=== PATIENT | male | born 1970 | race Caucasian/White ===

== ENCOUNTER → 2017-01-21 | Outpatient (CLI) | payer BC ==
[~2017-01-21] VITALS: Ht 180.3 cm; Wt 106.5 kg
[~2017-01-21] MED LIST: ATOR-24 PO; ATV/1 PO; FEXO1TAB46 PO; HYDRTAB8 PO; IBUP-103 PO
[2017-01-21 15:04] VITALS: BP 137/89; PULSE 106; Ht 180.3 cm; Wt 106.5 kg
== END | disposition home or self-care (01) ==
LOC: C.NEUR 14:50
PROVIDERS: ATTEND Physician Assistant
DX: G47.33 Obstructive sleep apnea (adult) (pediatric) (principal)

== ENCOUNTER → 2017-05-06 | Outpatient (CLI) | payer BC ==
[2017-05-06 17:40] LABS: URINE APPEARANCE CLEAR (CLEAR); URINE BILIRUBIN NEG (NEG); URINE COLOR YELLOW; URINE NITRITE NEG (NEG); URINE PH 6.5 (4.5-7.5); UROBILINOGEN NEG (NEG); ZZUR CULT IF INDIC CLEAN CATCH NO
[2017-05-06 17:42] LABS: MEAN CORPUSCULAR HGB CONC 34.8 g/dl (32-36); MEAN PLATELET VOLUME 9.8 fL (7.4-10.4); PLATELET COUNT 210 K/uL (130-400)
[2017-05-06 17:50] LABS: BLOOD UREA NITROGEN 11 mg/dl (7-18); BUN/CREATININE RATIO 10.7 (10-20); CALCIUM 8.8 mg/dl (8.5-10.1); CARBON DIOXIDE 28 mmol/L (21-32); CHLORIDE 106 mmol/L (98-107); CHOLESTEROL 151 mg/dl (0-200); CREATININE 0.99 mg/dl (0.60-1.40); GLUCOSE 88 mg/dl (70-99); POTASSIUM 3.9 mmol/L (3.5-5.1); SODIUM 139 mmol/L (136-145)
[2017-05-06 17:56] LABS: MANUAL MICROSCOPIC REQUIRED? NO; REVIEW REQ? NO
[2017-05-06 18:01] LABS: ALB/GLOB RATIO 1.1 (0.9-2); ALKALINE PHOSPHATASE 127 U/L (45-117); ALT/SGPT 36 U/L (12-78); AST/SGOT 19 U/L (15-37); CHOLESTEROL/HDL RATIO 3.4; HDL CHOLESTEROL 44 mg/dl; LDL CHOLESTEROL CALCULATED 64 mg/dl; TRIGLYCERIDES 217 mg/dl (0-150); VERY LOW DENSITY LIPOPROT CALC 43 mg/dl
[2017-05-06 18:50] LABS: HEMATOCRIT 43.1 % (42-52); MEAN CELL VOLUME 92.3 fL (80-100); MEAN CORPUSCULAR HEMOGLOBIN 32.1 pg (25-34); RED BLOOD COUNT 4.67 M/uL (4.7-6.1); WHITE BLOOD COUNT 6.86 K/uL (4.8-10.8)
[2017-05-06 18:51] LABS: BASO % 0.3 %; BASO ABS # 0.02 K/uL (0-0.2); COMPLETE YES; EOS % 1.7 %; IG% 0.6 %; LYMPH % 35.7 %; LYMPH ABS # 2.45 K/uL (1.2-3.4); MONO % 7.3 %; NEUT % 54.4 %
== END | disposition home or self-care (01) ==
LOC: C.LABBFT 11:46
PROVIDERS: ATTEND Internal Medicine
DX: R53.83 Other fatigue (principal); E78.5 Hyperlipidemia, unspecified

== ENCOUNTER 2018-01-16 11:14 | Inpatient (IN) | payer BC ==
[~2018-01-16] VITALS: Ht 180.3 cm; Wt 109.2 kg
[2018-01-16] MEDS ORDERED: NAPR220T40 PO (11:37)
[2018-01-16] MEDS ORDERED: SODIUM CHLORIDE 0.9% 1000ML 1,000 ML IV STA ×2 (12:05→13:39)
[2018-01-16 12:18] LABS: BASO % 0.1 %; BASO ABS # 0.02 K/uL (0-0.2); EOS % 0.1 %; EOS ABS # 0.01 K/uL (0-0.5); HEMATOCRIT 45.5 % (42-52); IG# 0.06 K/uL (0.00-0.02); LYMPH % 6.6 %; LYMPH ABS # 1.24 K/uL (1.2-3.4); MEAN CORPUSCULAR HGB CONC 35.2 g/dl (32-36); MEAN PLATELET VOLUME 9.9 fL (7.4-10.4); MONO % 8.7 %; MONO ABS # 1.64 K/uL (0.11-0.59); NEUT % 84.2 %; NEUT ABS # 15.94 K/uL (1.4-6.5); PLATELET COUNT 177 K/uL (130-400); RED CELL DISTRIBUTION WIDTH CV 13.7 % (11.5-14.5); RED CELL DISTRIBUTION WIDTH SD 44.8 fL (36.4-46.3); WHITE BLOOD COUNT 18.91 K/uL (4.8-10.8)
[2018-01-16 12:29] LABS: ALBUMIN 4.7 gm/dl (3.4-5.0); CALCIUM 9.3 mg/dl (8.5-10.1); CREATININE 1.29 mg/dl (0.60-1.40); POTASSIUM 3.8 mmol/L (3.5-5.1)
--- NOTE | 2018-01-16 12:30 | DIAGNOSTIC IMAGING REPORT ---
CHEST ONE VIEW PORTABLE CLINICAL HISTORY: Cough, chills, tachycardia. COMPARISON STUDY: Chest radiograph February 23, 2013. FINDINGS: Patient is mildly rotated. Lung volumes are normal. There is no pneumothorax or pleural effusion. No consolidation is identified. Cardiac size is normal. Mild interstitial prominence is unchanged. There is no evidence for overt pulmonary edema. IMPRESSION: No acute cardiopulmonary findings. Electronically signed by: Eduardo Hernandez M.D. 01/16/2018 12:28 PM Dictated Date/Time: 01/16/2018 12:27 PM
[2018-01-16 12:31] LABS: PTT PATIENT 26.9 SECONDS (21.0-31.0)
[2018-01-16] MEDS ORDERED: CEFTRIAXONE SOD INJ 1 GM ADDVIAL IV STA (12:44)
--- NOTE | 2018-01-16 12:44 | EMERGENCY ROOM VISIT NOTE ---
History First contact with patient: 11:52 Chief Complaint: URINARY SYMPTOMS Stated Complaint: URINARY FREQUENCY, BURNING LOW BACK PAIN, COUGH,FE Nursing Triage Summary: Patient complains of burning with urination, frequency and low back pain since yesterday at 1700 History of Present Illness The patient is a 47 year old male who presents to the Emergency Room with complaints of "urinary frequency, burning, low back pain, cough, fever". The patient has a cough 6 months. However, he presents today referred by the family doctor for urinary frequency, fever 102F, back pain. He also notes fevers and chills. He notes no history of UTI or kidney stone. He states that he has urinary frequency, burning and urgency. He has decreased p.o. fluids. He denies seeing any blood. He notes bowel movements have been okay. He notes no true abdominal pain other than some discomfort overlying the bladder region. Review of Systems A complete 10-point Review of Systems was discussed with the patient, with pertinent positives and negatives listed in the History of Present Illness. All remaining Review of Systems questions can be considered negative unless otherwise specified. Past Medical/Surgical History Medical Problems: (1) Bronchitis (2) Carpal tunnel syndrome (3) Colectomy (4) Dysuria (5) Flank pain (6) Pneumonia Social History Smoking Status: Never Smoker Alcohol Use: occasionally Marital Status: Housing Status: lives with family Occupation Status: employed Current/Historical Medications Scheduled PRN Naproxen Sodium (Aleve), 220 MG PO UD PRN for Headache Physical Exam Vital Signs Date Time Temp Pulse Resp B/P (MAP) Pulse Ox O2 Delivery O2 Flow Rate FiO2 01/16/18 14:29 110 20 177/96 98 Room Air 01/16/18 13:34 118 22 156/93 98 Room Air 01/16/18 11:22 37.6 130 20 136/84 98 Room Air Physical Exam VITAL SIGNS - Vital signs and nursing notes were reviewed. Borderline febrile and tachycardic. GENERAL -47-year-old male appearing his stated age who is in no acute distress. He is nontoxic in appearance. Communicates well with provider and answers questions appropriately. SKIN - Without rashes. No meningeal or petechial rash. HEAD - NC/AT. EYES - PERRL with EOMI bilaterally. Sclera anicteric. EARS - No deformities of external structures noted on gross examination bilaterally. NOSE - Midline and without cyanosis. No epistaxis or purulent drainage noted. MOUTH/OROPHARYNX - Without perioral cyanosis. NECK - Neck with FROM. Supple to palpation. No nuchal rigidity. LUNGS - Chest wall symmetric without accessory muscle use, intercostals retractions, or central cyanosis. Normal vesicular breath sounds CTA B/L. No wheezes, rales, or rhonchi appreciated. CARDIAC - RRR with S1/S2. No murmur, rubs, or gallops appreciated. ABDOMEN - Abdominal contour normal without pulsations or visible masses. BS normoactive all four quadrants. Minimal lower back tenderness. No identified abdominal tenderness. No palpable masses, hepatosplenomegaly, or ascites noted. EXTREMITIES - No clubbing or peripheral cyanosis. No pretibial edema present. +5 /5 strength noted in UE/LE bilaterally. NEUROLOGIC - Cranial nerves II through XII grossly intact. Sensory intact to light touch throughout. Medical Decision & Procedures ER Provider Diagnostic Interpretation: CHEST ONE VIEW PORTABLE CLINICAL HISTORY: Cough, chills, tachycardia. COMPARISON STUDY: Chest radiograph February 23, 2013. FINDINGS: Patient is mildly rotated. Lung volumes are normal. There is no pneumothorax or pleural effusion. No consolidation is identified. Cardiac size is normal. Mild interstitial prominence is unchanged. There is no evidence for overt pulmonary edema. IMPRESSION: No acute cardiopulmonary findings. Electronically signed by: Eduardo Hernandez M.D. 01/16/2018 12:28 PM Dictated Date/Time: 01/16/2018 12:[address] OF THE ABDOMEN AND PELVIS WITH CONTRAST CLINICAL HISTORY: Flank pain, dysuria. COMPARISON STUDY: None. TECHNIQUE: Following IV administration of 110 mL of Optiray-320, axial images of the abdomen and pelvis were obtained from the lung bases to the proximal femurs. Images were reviewed in the axial, sagittal, and coronal planes. IV contrast was administered without complication. A dose lowering technique was utilized adhering to the principles of ALARA. CT DOSE: 1068.36 mGycm FINDINGS: Lung bases are clear. There is probable fatty infiltration of the liver. The spleen, adrenal glands and pancreas are unremarkable. There is no biliary or pancreatic ductal dilatation. There is mild left collecting system dilatation. Both nephrograms are symmetric. There is no evidence for pyelonephritis. There is slight infiltration posterior to the bladder with possible mild bladder wall thickening. There may be slight prominent enhancement of the santiago of both ureters although this could be within normal limits. There is no evidence for a bowel obstruction. Patient is status post right colon resection. Fat-containing right inguinal hernia is noted. Prostate is mildly enlarged. IMPRESSION: 1. Minimal infiltration posterior to the bladder with mild bladder wall thickening. This could be correlated with urinalysis to exclude cystitis. No CT evidence for pyelonephritis. 2. Mild left collecting system dilatation with normal caliber left ureter. While nonspecific, this may reflect a mild UPJ type obstruction. Symmetric nephrograms. 3. Status post right colon resection. No bowel obstruction. No lymphadenopathy. Electronically signed by: Eduardo Hernandez M.D. 01/16/2018 1:50 PM Dictated Date/Time: 01/16/2018 1:38 PM Laboratory Results 01/16/18 11:55 Red Blood Count 5.00, Mean Corpuscular Volume 91.0, Mean Corpuscular Hemoglobin 32.0, Mean Corpuscular Hemoglobin Concent 35.2, Mean Platelet Volume 9.9, Neutrophils (%) (Auto) 84.2, Lymphocytes (%) (Auto) 6.6, Monocytes (%) (Auto) 8.7, Eosinophils (%) (Auto) 0.1, Basophils (%) (Auto) 0.1, Neutrophils # (Auto) 15.94, Lymphocytes # (Auto) 1.24, Monocytes # (Auto) 1.64, Eosinophils # (Auto) 0.01, Basophils # (Auto) 0.02 01/16/18 11:55 Test 01/16/18 11:50 01/16/18 11:55 01/16/18 13:00 Urine Color DK YELLOW Urine Appearance CLOUDY (CLEAR) Urine pH 6.5 (4.5-7.5) Urine Specific [place] 1.026 (1.000-1.030) Urine Protein 1+ (NEG) Urine Glucose (UA) NEG (NEG) Urine Ketones TRACE (NEG) Urine Occult Blood 1+ (NEG) Urine Nitrite POS (NEG) Urine Bilirubin NEG (NEG) Urine Urobilinogen NEG (NEG) Urine Leukocyte Esterase LARGE (NEG) Urine WBC (Auto) >30 /hpf (0-5) Urine RBC (Auto) 10-30 /hpf (0-4) Urine Hyaline Casts (Auto) 0 /lpf (0-5) Urine Epithelial Cells (Auto) 0-5 /lpf (0-5) Urine Bacteria (Auto) 1+ (NEG) White Blood Count 18.91 K/uL (4.8-10.8) Red Blood Count 5.00 M/uL (4.7-6.1) Hemoglobin 16.0 g/dL (14.0-18.0) Hematocrit 45.5 % (42-52) Mean Corpuscular Volume 91.0 fL (80-100) Mean Corpuscular Hemoglobin 32.0 pg (25-34) Mean Corpuscular Hemoglobin Concent 35.2 g/dl (32-36) Platelet Count 177 K/uL (130-400) Mean Platelet Volume 9.9 fL (7.4-10.4) Neutrophils (%) (Auto) 84.2 % Lymphocytes (%) (Auto) 6.6 % Monocytes (%) (Auto) 8.7 % Eosinophils (%) (Auto) 0.1 % Basophils (%) (Auto) 0.1 % Neutrophils # (Auto) 15.94 K/uL (1.4-6.5) Lymphocytes # (Auto) 1.24 K/uL (1.2-3.4) Monocytes # (Auto) 1.64 K/uL (0.11-0.59) Eosinophils # (Auto) 0.01 K/uL (0-0.5) Basophils # (Auto) 0.02 K/uL (0-0.2) RDW Standard Deviation 44.8 fL (36.4-46.3) RDW Coefficient of Variation 13.7 % (11.5-14.5) Immature Granulocyte % (Auto) 0.3 % Immature Granulocyte # (Auto) 0.06 K/uL (0.00-0.02) Prothrombin Time 10.4 SECONDS (9.0-12.0) Prothromb Time International Ratio 1.0 (0.9-1.1) Activated Partial Thromboplast Time 26.9 SECONDS (21.0-31.0) Partial Thromboplastin Ratio 1.0 Anion Gap 7.0 mmol/L (3-11) Est Creatinine Clear Calc Drug Dose 90.9 ml/min Estimated GFR () 77.1 Estimated GFR (Non- 66.5 BUN/Creatinine Ratio 12.2 (10-20) Calcium Level 9.3 mg/dl (8.5-10.1) Total Bilirubin 1.3 mg/dl (0.2-1) Aspartate Amino Transf (AST/SGOT) 19 U/L (15-37) Alanine Aminotransferase (ALT/SGPT) 39 U/L (12-78) Alkaline Phosphatase 135 U/L (45-117) Total Protein 9.0 gm/dl (6.4-8.2) Albumin 4.7 gm/dl (3.4-5.0) Globulin 4.3 gm/dl (2.5-4.0) Albumin/Globulin Ratio 1.1 (0.9-2) Lactic Acid Level 1.2 mmol/L (0.4-2.0) Medications Administered Medications (Trade) Dose Ordered Sig/Gillian Route Start Time Stop Time Status Last Admin Dose Admin Sodium Chloride 1,000 ml @ 999 mls/hr Q1H1M STAT IV 01/16/18 12:05 01/16/18 13:05 DC 01/16/18 12:30 999 MLS/HR Ceftriaxone Sodium (Rocephin Inj) 1 gm NOW STAT IV 01/16/18 12:44 01/16/18 12:46 DC 01/16/18 13:33 1 GM Sodium Chloride 1,000 ml @ 999 mls/hr Q1H1M STAT IV 01/16/18 13:39 01/16/18 14:39 DC 01/16/18 14:01 999 MLS/HR Medical Decision Patient was seen and evaluated as above in room B8. Review was performed of nursing notes and vital signs. After obtaining a thorough history and physical examination the above work up was performed. He presents to us referred by the family doctor of her concerns of questionable pyelonephritis. Clinically sure the same concern. He presents to us today tachycardic and borderline febrile. There is urinary frequency, dysuria, frequency. Urinalysis is concerning for UTI. CBC reveals leukocytosis without concerning anemia. No emergent metabolic abnormality. I will treat with fluids, and empirically begin Rocephin after blood cultures are ordered. CT was obtained with contrast of the abdomen and pelvis. Cystitis noted. Clinically there is concerned that he does have pyelonephritis. I believe that further evaluation and management is warranted in the inpatient setting. Case discussed with the attending and subsequently the hospitalist. I spoke with Dr. Dumont. Please refer to for the documentation regarding the patient's stay. Patient is agreeable to stay. Case was discussed with the attending physician. In the evaluation and treatment of this patient the following differential diagnoses were entertained: UTI, pyelonephritis, sepsis, among others. Impression Primary Impression: Urinary tract infection Departure Information Dispostion Admitted as an inpatient Condition FAIR Referrals Pavan Cortés M.D. (PCP) Patient Instructions [facility]
[2018-01-16] MEDS ORDERED: OPTIRAY 320 IV PRN (13:00)
--- NOTE | 2018-01-16 13:51 | DIAGNOSTIC IMAGING REPORT ---
CT OF THE ABDOMEN AND PELVIS WITH CONTRAST CLINICAL HISTORY: Flank pain, dysuria. COMPARISON STUDY: None. TECHNIQUE: Following IV administration of 110 mL of Optiray-320, axial images of the abdomen and pelvis were obtained from the lung bases to the proximal femurs. Images were reviewed in the axial, sagittal, and coronal planes. IV contrast was administered without complication. A dose lowering technique was utilized adhering to the principles of ALARA. CT DOSE: 1068.36 mGycm FINDINGS: Lung bases are clear. There is probable fatty infiltration of the liver. The spleen, adrenal glands and pancreas are unremarkable. There is no biliary or pancreatic ductal dilatation. There is mild left collecting system dilatation. Both nephrograms are symmetric. There is no evidence for pyelonephritis. There is slight infiltration posterior to the bladder with possible mild bladder wall thickening. There may be slight prominent enhancement of the santiago of both ureters although this could be within normal limits. There is no evidence for a bowel obstruction. Patient is status post right colon resection. Fat-containing right inguinal hernia is noted. Prostate is mildly enlarged. IMPRESSION: 1. Minimal infiltration posterior to the bladder with mild bladder wall thickening. This could be correlated with urinalysis to exclude cystitis. No CT evidence for pyelonephritis. 2. Mild left collecting system dilatation with normal caliber left ureter. While nonspecific, this may reflect a mild UPJ type obstruction. Symmetric nephrograms. 3. Status post right colon resection. No bowel obstruction. No lymphadenopathy. Electronically signed by: Eduardo Hernandez M.D. 01/16/2018 1:50 PM Dictated Date/Time: 01/16/2018 1:38 PM
[2018-01-16] MEDS ORDERED: POLYETHYLENE (MIRALAX) 17 GM PACK PO PRN (15:15)
[2018-01-16] MEDS ORDERED: ONDANSETRON INJ 2 MG/ML 2 ML VIAL IV PRN (15:15)
[2018-01-16] MEDS ORDERED: ALUMINUM/MAGNESIUM/SIMETH (MAALOX MAX) 30 ML UDC PO PRN (15:15)
[2018-01-16] MEDS ORDERED: HEPARIN SOD 5000 UNIT/0.5 ML CARP SQ SCH (15:15)
[2018-01-16] MEDS ORDERED: MAGNESIUM HYDROXIDE SUSP 30 ML UDC PO PRN (15:15)
[2018-01-16] MEDS ORDERED: ZOLPIDEM TARTRATE 5 MG TAB PO PRN (15:15)
[2018-01-16] MEDS ORDERED: HYDROmorphone INJ 0.5 MG/0.5 ML SYR IV PRN (15:30)
--- NOTE | 2018-01-16 15:51 | History and Physical ---
History & Physical Date & Time of Service: Jan 16, 2018 at 15:40 Chief Complaint: Urinary Frequency, Burning Low Back Pain, Cough,Fe Primary Care Physician: Pavan Cortés M.D. History of Present Illness Source: patient, hospital records, other 47 y/o M who denies active medical issues - presents with L flank pain, dysuria , nausea and high fever. A CT abdomen was obtained in the ER due to suspicion for a calculus and pyelonephritis. No evidence of pyelonephritis is seen on CT however, there is left collecting system dilatation with a normal caliber left ureter which may reflect a mild UPJ obstruction. An initial UA is (+). Labs are otherwise notable for leukocytosis. The pt incidentally also c/o a dry cough which has been present for 2 months. He was placed on an antacid for this which has thus far not had the desired effect. Past Medical/Surgical History Precancerous polyps leading to R segmental colectomy Family History Father is due to CAD/SC - mother is alive and well Social History Does not smoke or drink Smoking Status: Never Smoker Marital Status: Occupational Status: employed Immunizations History of Influenza Vaccine: Yes Influenza Vaccine Date: Mar 20, 2006 History of Tetanus Vaccine?: Yes Tetanus Immunization Date: Feb 23, 2005 History of Pneumococcal: No History of Hepatitis B Vaccine: Yes Allergies Coded Allergies: Nortriptyline (Verified Adverse Reaction, Unknown, tachycardia, 01/16/18) Home Medications Scheduled PRN Naproxen Sodium (Aleve), 220 MG PO UD PRN for Headache Review of Systems Constitutional: + fever, + chills Eyes: No worsening of vision ENT: No hearing loss, No unusual epistaxis, No nasal symptoms Respiratory: + cough (chronic ), No sputum Cardiovascular: No chest pain, No orthopnea, No PND Abdomen: + pain, + nausea, No vomiting Musculoskeletal: No joint pain Genitourinary - Male: + dysuria, No hematuria Neurologic: No memory loss, No paralysis, No weakness Psychiatric: No depression symptoms Endocrine: No fatigue Hematologic / Lymphatic: No abnormal bleeding/bruising Integumentary: No rash Allergic / Immunologic: No environmental allergies Physical Exam Vital Signs Date Time Temp Pulse Resp B/P (MAP) Pulse Ox O2 Delivery O2 Flow Rate FiO2 01/16/18 14:29 110 20 177/96 98 Room Air 01/16/18 13:34 118 22 156/93 98 Room Air 01/16/18 11:22 37.6 130 20 136/84 98 Room Air General Appearance: WD/WN, no apparent distress Head: normocephalic Eyes: normal inspection ENT: pharynx normal Neck: supple, no JVD Respiratory/Chest: chest non-tender, lungs clear, normal breath sounds Cardiovascular: regular rate, rhythm, no edema, no gallop Abdomen/GI: normal bowel sounds, non tender, + pertinent finding (LLQ is mildly tender) Back: + left CVA tenderness Extremities/Musculoskelatal: normal inspection, no calf tenderness, normal capillary refill 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, no motor/sensory deficits, alert, oriented x 3 Skin: normal color Diagnostics Laboratory Results Results Past 24 Hours Test 01/16/18 11:50 01/16/18 11:55 01/16/18 13:00 Range/Units Urine Color DK YELLOW Urine Appearance CLOUDY CLEAR Urine pH 6.5 4.5-7.5 Urine Specific [place] 1.026 1.000-1.030 Urine Protein 1+ NEG Urine Glucose (UA) NEG NEG Urine Ketones TRACE NEG Urine Occult Blood 1+ NEG Urine Nitrite POS NEG Urine Bilirubin NEG NEG Urine Urobilinogen NEG NEG Urine Leukocyte Esterase LARGE NEG Urine WBC (Auto) >30 0-5 /hpf Urine RBC (Auto) 10-30 0-4 /hpf Urine Hyaline Casts (Auto) 0 0-5 /lpf Urine Epithelial Cells (Auto) 0-5 0-5 /lpf Urine Bacteria (Auto) 1+ NEG White Blood Count 18.91 4.8-10.8 K/uL Red Blood Count 5.00 4.7-6.1 M/uL Hemoglobin 16.0 14.0-18.0 g/dL Hematocrit 45.5 42-52 % Mean Corpuscular Volume 91.0 80-100 fL Mean Corpuscular Hemoglobin 32.0 25-34 pg Mean Corpuscular Hemoglobin Concent 35.2 32-36 g/dl Platelet Count 177 130-400 K/uL Mean Platelet Volume 9.9 7.4-10.4 fL Neutrophils (%) (Auto) 84.2 % Lymphocytes (%) (Auto) 6.6 % Monocytes (%) (Auto) 8.7 % Eosinophils (%) (Auto) 0.1 % Basophils (%) (Auto) 0.1 % Neutrophils # (Auto) 15.94 1.4-6.5 K/uL Lymphocytes # (Auto) 1.24 1.2-3.4 K/uL Monocytes # (Auto) 1.64 0.11-0.59 K/uL Eosinophils # (Auto) 0.01 0-0.5 K/uL Basophils # (Auto) 0.02 0-0.2 K/uL RDW Standard Deviation 44.8 36.4-46.3 fL RDW Coefficient of Variation 13.7 11.5-14.5 % Immature Granulocyte % (Auto) 0.3 % Immature Granulocyte # (Auto) 0.06 0.00-0.02 K/uL Prothrombin Time 10.4 9.0-12.0 SECONDS Prothromb Time International Ratio 1.0 0.9-1.1 Activated Partial Thromboplast Time 26.9 21.0-31.0 SECONDS Partial Thromboplastin Ratio 1.0 Sodium Level 135 136-145 mmol/L Potassium Level 3.8 3.5-5.1 mmol/L Chloride Level 101 98-107 mmol/L Carbon Dioxide Level 27 21-32 mmol/L Anion Gap 7.0 3-11 mmol/L Blood Urea Nitrogen 16 7-18 mg/dl Creatinine 1.29 0.60-1.40 mg/dl Est Creatinine Clear Calc Drug Dose 90.9 ml/min Estimated GFR () 77.1 Estimated GFR (Non- 66.5 BUN/Creatinine Ratio 12.2 10-20 Random Glucose 104 70-99 mg/dl Calcium Level 9.3 8.5-10.1 mg/dl Total Bilirubin 1.3 0.2-1 mg/dl Aspartate Amino Transf (AST/SGOT) 19 15-37 U/L Alanine Aminotransferase (ALT/SGPT) 39 12-78 U/L Alkaline Phosphatase 135 45-117 U/L Total Protein 9.0 6.4-8.2 gm/dl Albumin 4.7 3.4-5.0 gm/dl Globulin 4.3 2.5-4.0 gm/dl Albumin/Globulin Ratio 1.1 0.9-2 Lactic Acid Level 1.2 0.4-2.0 mmol/L Microbiology Results 01/16/18 Blood Culture, Received Pending 01/16/18 Blood Culture, Received Pending 01/16/18 Urine Culture, Received Pending Diagnostic Radiology IMPRESSION: 1. Minimal infiltration posterior to the bladder with mild bladder wall thickening. This could be correlated with urinalysis to exclude cystitis. No CT evidence for pyelonephritis. 2. Mild left collecting system dilatation with normal caliber left ureter. While nonspecific, this may reflect a mild UPJ type obstruction. Symmetric nephrograms. 3. Status post right colon resection. No bowel obstruction. No lymphadenopathy. Impression Assessment and Plan 47 y/o M who denies active medical issues - presents with L flank pain, dysuria , nausea and high fever. A CT abdomen was obtained in the ER due to suspicion for a calculus and pyelonephritis. No evidence of pyelonephritis is seen on CT however, there is left collecting system dilatation with a normal caliber left ureter which may reflect a mild UPJ obstruction. An initial UA is (+). Labs are otherwise notable for leukocytosis. The pt incidentally also c/o a dry cough which has been present for 2 months. He was placed on an antacid for this which has thus far not had the desired effect. The pt will be treated for cystitis/clinical pyelonephritis. He is placed on Ceftriaxone pending culture results. Due to the CT results which may indicate mild ureteral obstruction, we have consulted urology. Chronic cough - can cont outpt workup. Full code - SCDs Total time for this admit including review of labs, meds, imaging, records - discussion with pt and ER attending - 33 min Resuscitation Status VTE Prophylaxis Will order VTE Prophylaxis: Yes
[2018-01-16 16:04] VITALS: O2SAT 98; Ht 180.3 cm; Wt 109.2 kg
[2018-01-16 17:30] VITALS: BP 139/91; PULSE 124; TEMP 37.5; O2SAT 95
[2018-01-16 17:45] VITALS: O2SAT 96
[2018-01-16] MEDS: D5NSS + 20MEQ KCL 1,000 ML IV SCH (18:07)
[2018-01-16] MEDS: ACETAMINOPHEN 325 MG TAB PO PRN (20:20)
[2018-01-16 23:47] VITALS: BP 128/75; PULSE 109; TEMP 37.3; O2SAT 94
[2018-01-17] MEDS: ACETAMINOPHEN 325 MG TAB PO PRN ×4 (00:28→21:37)
[2018-01-17] MEDS: D5NSS + 20MEQ KCL 1,000 ML IV SCH (03:47)
[2018-01-17 07:36] VITALS: BP 126/75; PULSE 103; TEMP 37.2; O2SAT 98
--- NOTE | 2018-01-17 08:21 | Progress Note ---
Subjective Date of Service: Jan 17, 2018. Subjective pt has some continued b/l cva pain is tired and fatigued Problem List Medical Problems: (1) Urinary tract infection Status: Acute Review of Systems Constitutional: + weakness, + fatigue, No fever, No chills Respiratory: No cough, No shortness of breath Cardiac: No chest pain, No edema Abdomen: + pain, No nausea, No diarrhea Male : + urinary frequency, No dysuria, No incontinence Psychiatric: No depression symptoms, No anxiety Objective Vital Signs Date Time Temp Pulse Resp B/P (MAP) Pulse Ox O2 Delivery O2 Flow Rate FiO2 01/17/18 07:36 37.2 103 19 126/75 (92) 98 Room Air 01/17/18 00:00 Room Air 01/16/18 23:47 37.3 109 17 128/75 (92) 94 Room Air 01/16/18 17:45 96 Room Air 01/16/18 17:30 37.5 124 16 139/91 (107) 95 Room Air 01/16/18 16:29 110 18 132/80 96 Room Air 01/16/18 16:04 98 Room Air 01/16/18 14:29 110 20 177/96 98 Room Air 01/16/18 13:34 118 22 156/93 98 Room Air 01/16/18 11:22 37.6 130 20 136/84 98 Room Air Physical Exam General Appearance: WD/WN, + mild distress Eyes: normal inspection, sclerae normal Neck: supple, no JVD Respiratory/Chest: chest non-tender, lungs clear, normal breath sounds Cardiovascular: regular rate, rhythm, no murmur Abdomen: normal bowel sounds, non tender, soft Extremities: non-tender, no pedal edema Neurologic/Psychiatric: alert, oriented x 3 Laboratory Results Last 24 Hours Test 01/16/18 11:50 01/16/18 11:55 01/16/18 13:00 Urine Color DK YELLOW Urine Appearance CLOUDY Urine pH 6.5 Urine Specific [place] 1.026 Urine Protein 1+ Urine Glucose (UA) NEG Urine Ketones TRACE Urine Occult Blood 1+ Urine Nitrite POS Urine Bilirubin NEG Urine Urobilinogen NEG Urine Leukocyte Esterase LARGE Urine WBC (Auto) >30 /hpf Urine RBC (Auto) 10-30 /hpf Urine Hyaline Casts (Auto) 0 /lpf Urine Epithelial Cells (Auto) 0-5 /lpf Urine Bacteria (Auto) 1+ White Blood Count 18.91 K/uL Red Blood Count 5.00 M/uL Hemoglobin 16.0 g/dL Hematocrit 45.5 % Mean Corpuscular Volume 91.0 fL Mean Corpuscular Hemoglobin 32.0 pg Mean Corpuscular Hemoglobin Concent 35.2 g/dl Platelet Count 177 K/uL Mean Platelet Volume 9.9 fL Neutrophils (%) (Auto) 84.2 % Lymphocytes (%) (Auto) 6.6 % Monocytes (%) (Auto) 8.7 % Eosinophils (%) (Auto) 0.1 % Basophils (%) (Auto) 0.1 % Neutrophils # (Auto) 15.94 K/uL Lymphocytes # (Auto) 1.24 K/uL Monocytes # (Auto) 1.64 K/uL Eosinophils # (Auto) 0.01 K/uL Basophils # (Auto) 0.02 K/uL RDW Standard Deviation 44.8 fL RDW Coefficient of Variation 13.7 % Immature Granulocyte % (Auto) 0.3 % Immature Granulocyte # (Auto) 0.06 K/uL Prothrombin Time 10.4 SECONDS Prothromb Time International Ratio 1.0 Activated Partial Thromboplast Time 26.9 SECONDS Partial Thromboplastin Ratio 1.0 Sodium Level 135 mmol/L Potassium Level 3.8 mmol/L Chloride Level 101 mmol/L Carbon Dioxide Level 27 mmol/L Anion Gap 7.0 mmol/L Blood Urea Nitrogen 16 mg/dl Creatinine 1.29 mg/dl Est Creatinine Clear Calc Drug Dose 90.9 ml/min Estimated GFR () 77.1 Estimated GFR (Non- 66.5 BUN/Creatinine Ratio 12.2 Random Glucose 104 mg/dl Calcium Level 9.3 mg/dl Total Bilirubin 1.3 mg/dl Aspartate Amino Transf (AST/SGOT) 19 U/L Alanine Aminotransferase (ALT/SGPT) 39 U/L Alkaline Phosphatase 135 U/L Total Protein 9.0 gm/dl Albumin 4.7 gm/dl Globulin 4.3 gm/dl Albumin/Globulin Ratio 1.1 Lactic Acid Level 1.2 mmol/L Assessment and Plan 47 y/o M who denies active medical issues - presents with L flank pain, dysuria , nausea and high fever. A CT abdomen was obtained in the ER due to hydronephrosis at the left upj and cystitis. left collecting system dilatation with a normal caliber left ureter which may reflect a mild UPJ obstruction. An initial UA is (+). significant leukocytosis. The pt incidentally also c/o a dry cough which has been present for 2 months. He was placed on an antacid for this which has thus far not had the desired effect. The pt will be treated for cystitis/clinical pyelonephritis. He is placed on Ceftriaxone, cultures preliminary show E Coli, pending culture results. Due to the CT results which may indicate mild ureteral obstruction, we have consulted urology, they will follow up as an outpt Chronic cough - can cont outpt workup.
[2018-01-17 10:28] LABS: BASO % 0.2 %; BASO ABS # 0.02 K/uL (0-0.2); EOS % 0.5 %; EOS ABS # 0.06 K/uL (0-0.5); HEMATOCRIT 39.8 % (42-52); HEMOGLOBIN 13.5 g/dL (14.0-18.0); IG# 0.03 K/uL (0.00-0.02); LYMPH % 8.2 %; LYMPH ABS # 0.99 K/uL (1.2-3.4); MEAN CELL VOLUME 92.1 fL (80-100); MEAN CORPUSCULAR HEMOGLOBIN 31.3 pg (25-34); MEAN CORPUSCULAR HGB CONC 33.9 g/dl (32-36); MEAN PLATELET VOLUME 9.3 fL (7.4-10.4); MONO % 9.6 %; MONO ABS # 1.16 K/uL (0.11-0.59); NEUT % 81.3 %; NEUT ABS # 9.84 K/uL (1.4-6.5); PLATELET COUNT 124 K/uL (130-400); RED CELL DISTRIBUTION WIDTH CV 13.9 % (11.5-14.5)
[2018-01-17 11:07] LABS: CALCIUM 8.2 mg/dl (8.5-10.1); CREATININE 1.02 mg/dl (0.60-1.40); POTASSIUM 3.8 mmol/L (3.5-5.1)
[2018-01-17] MEDS: CEFTRIAXONE SOD INJ 1 GM in DEXTROSE 5% ADD-VANTAGE 50ML 50 ML IV SCH (12:43)
--- NOTE | 2018-01-17 12:59 | Urology Consultation ---
History General Date of Service: Jan 17, 2018. Chief Complaint: Dysuria, flank pain Primary Care Physician: Pavan Cortés M.D. Pt seen a urologist before?: Yes If yes, why?: only for vasectomy History of Present Illness 47 YO male, dysuria, bilateral flank pain. Aside from vasectomy, patient has never seen a urologist before. Denies issues as a child. Patient reports dysuria and urinary frequency x 2days, worsening bilateral flank pain yesterday that brought him to the ER. UC&S prelim growing E. Coli. CT abdomen & pelvis images reviewed: no urinary calculi visualized, no hydronephrosis, minor swelling left ureter likely suggesting mild chronic left UPJ obstruction noted. Cr remains stable. Patient is febrile and remains on IV antibiotics. Reports some bilateral flank pain, minor dysuria. Both are improving. Denies difficulty urinating, feels that he is emptying his bladder completely. Imaging Imaging: CT Images were done at: [facility] Laboratory Labs were reviewed and are within normal limits unless listed below. Labs are available in the chart and at [facility] Problem List Medical Problems: (1) Urinary tract infection Status: Acute Past History no pertinent history Past Surgical History: other (colon surgery) Social History Hx Tobacco Use In Past Year?: No Alcohol: occasional Drug use: none Marital status: Housing status: lives with family Occupation status: employed Immunizations History of Influenza Vaccine: Yes Influenza Vaccine Date: Mar 20, 2006 History of Tetanus Vaccine?: Yes Tetanus Immunization Date: Feb 23, 2005 History of Pneumococcal: No History of Hepatitis B Vaccine: Yes History of MDRO No Allergies Coded Allergies: Nortriptyline (Verified Adverse Reaction, Unknown, tachycardia, 01/16/18) Medications Home Medications: Home Meds and Scripts Medications Dose Route/Sig Max Daily Dose Days Date Category Aleve (Naproxen Sodium) 220 Mg Tab 220 Mg PO UD PRN 01/16/18 Reported Inpatient Medications: Current Inpatient Medications Medications (Trade) Dose Ordered Sig/Gillian Route Start Time Stop Time Status Last Admin Dose Admin Ioversol (Optiray 320) 111 ml UD PRN IV 01/16/18 13:00 01/20/18 12:59 Acetaminophen (Tylenol Tab) 650 mg Q4H PRN PO 01/16/18 15:15 02/15/18 15:14 01/17/18 07:54 650 MG Al Hydrox/Mg Hydrox/Simethicone (Maalox Max Susp) 15 ml Q4H PRN PO 01/16/18 15:15 02/15/18 15:14 Magnesium Hydroxide (Milk Of Magnesia Susp) 30 ml Q6H PRN PO 01/16/18 15:15 02/15/18 15:14 Polyethylene (Miralax Powder Packet) 17 gm DAILY PRN PO 01/16/18 15:15 02/15/18 15:14 Zolpidem Tartrate (Ambien Tab) 5 mg HSZ PRN PO 01/16/18 15:15 02/15/18 15:14 Ondansetron HCl (Zofran Inj) 4 mg Q6H PRN IV 01/16/18 15:15 02/15/18 15:14 01/16/18 18:07 4 MG Ceftriaxone Sodium 1 gm/ Dextrose 50 ml @ 100 mls/hr Q24H IV 01/17/18 13:00 01/27/18 12:59 Potassium Chloride/Dextrose/ Sod Cl 1,000 ml @ 100 mls/hr Q10H IV 01/16/18 18:00 01/17/18 13:59 01/17/18 03:47 100 MLS/HR Hydromorphone HCl (Dilaudid Inj) 0.5 mg Q4H PRN IV 01/16/18 15:30 01/30/18 15:29 Review of Systems Review of Systems Constitutional: + fever, No chills Eyes: No blurred vision Neurological: No numbness/tingling Gastrointestinal: No abdominal pain, No nausea, No vomiting Cardiovascular: No chest pain Respiratory: No shortness of breath Musculoskeletal: + back pain (bilateral flank) Ears / Nose / Throat: No problem reported Psychologic / Mental: No problem reported Male : + see HPI, + frequent urination, + painful urination, No urinary retention, No kidney stones Physical Exam Vital Signs: Vital Signs Past 12 Hours Date Time Temp Pulse Resp B/P (MAP) Pulse Ox O2 Delivery O2 Flow Rate FiO2 01/17/18 07:45 Room Air 01/17/18 07:36 37.2 103 19 126/75 (92) 98 Room Air Assessment & Plan Assessment & Plan 47 YO male, dysuria, bilateral flank pain. UC&S prelim growing E. Coli. Imaging revealing likely chronic, mild left UPJ obstruction. Patient reports feeling better this morning. Recommend transition to PO antibiotics pending sensitivities for a total of 10d of therapy. Will arrange outpatient follow up for continued monitoring of UPJ obstruction. Thank you for the consult. Please contact our service if acute change in patient status.
[2018-01-17 15:28] VITALS: BP 151/101; PULSE 96; TEMP 37.2; O2SAT 96
[2018-01-17 15:45] VITALS: O2SAT 96
[2018-01-17 23:05] VITALS: BP 142/78; PULSE 65; TEMP 36.3; O2SAT 95
[2018-01-17 23:10] VITALS: BP 150/81; PULSE 108; TEMP 37.5; O2SAT 97
[2018-01-18] MEDS ORDERED: NAPROXEN 250 MG TAB PO PRN
[2018-01-18] MEDS ORDERED: CPR500 PO (07:48)
--- NOTE | 2018-01-18 07:51 | Discharge Instructions ---
Discharge Instructions Date of Service Jan 18, 2018. Admission Reason for Admission: Dysuria,Flank Pain Discharge Discharge Diagnosis / Problem: cystitis, upj narrowing Discharge Goals Goal(s): Diagnostic testing, Therapeutic intervention Activity Recommendations Activity Limitations: as noted below Lifting Limitations: gradually increase as tolerated . Current Hospital Diet Patient's current hospital diet: Regular Diet Discharge Diet Recommended Diet: Regular Diet Pending Studies Studies pending at discharge: no Medical Emergencies . Who to Call and When: Medical Emergencies: If at any time you feel your situation is an emergency, please call 911 immediately. . Non-Emergent Contact Non-Emergency issues call your: Primary Care Provider Call Non-Emergent contact if: temperature is above 101, your pain is not controlled . . "Provider Documentation" section prepared by Kenrick Crabtree. .
[2018-01-18 07:54] VITALS: BP 110/72; PULSE 61; PULSE 70; TEMP 36.8; O2SAT 99
--- NOTE | 2018-01-18 11:31 | Progress Note ---
Progress Note Date of Service Jan 18, 2018. Progress Note Hospital day #2 from UTI Patient's afebrile vital signs are stable Back pain is resolved Said he is voiding better although still has some frequency Culture growing E. coli Assessment Urinary tract infection We will transition patient to oral antibiotics We will continue him on 10 days of an antibiotic the organism is sensitive to He can follow-up in our office after discharge
[2018-01-18 11:46] VITALS: BP 120/90; PULSE 80; TEMP 36.7; O2SAT 98
[2018-01-18 11:52] VITALS: BP 120/90; PULSE 80; TEMP 36.7; O2SAT 98
[2018-01-18] MEDS: CEFTRIAXONE SOD INJ 1 GM in DEXTROSE 5% ADD-VANTAGE 50ML 50 ML IV SCH (13:00)
--- NOTE | 2018-01-18 13:31 | Discharge Summary ---
Discharge Summary Date of Service Jan 18, 2018. Discharge Summary Admission Date: Jan 16, 2018 at 15:18 Discharge Date: Jan 18, 2018 Discharge Disposition: Home Principal Diagnosis: cystitis Immunizations: Have You Had Influenza Vaccine: Yes Influenza Vaccine Date: Mar 20, 2006 History of Tetanus Vaccine?: Yes Tetanus Immunization Date: Feb 23, 2005 History of Pneumococcal: No History of Hepatitis B Vaccine: Yes Medication Reconciliation New Medications: Ciprofloxacin (Ciprofloxacin HCl) 500 Mg Tab 500 MG PO BID, #16 DOSE Continued Medications: Naproxen Sodium (Aleve) 220 Mg Tab 220 MG PO UD PRN for Headache Discharge Exam Review of Systems: Constitutional: No fever, No chills Cardiovascular: No chest pain, No orthopnea Abdomen: No pain, No nausea Physical Exam: General Appearance: WD/WN, no apparent distress Eyes: normal inspection, sclerae normal Neck: supple, no JVD Respiratory/Chest: chest non-tender, lungs clear, normal breath sounds Abdomen / GI: normal bowel sounds, soft Hospital Course 47 y/o M who denies active medical issues - presents with L flank pain, dysuria , nausea and high fever. A CT abdomen was obtained in the ER due to hydronephrosis at the left upj and cystitis. left collecting system dilatation with a normal caliber left ureter which may reflect a mild UPJ obstruction. E coli is sensitive to quinalones, will have 10 days on cipro Due to the CT results which may indicate mild ureteral obstruction, we have consulted urology, they will follow up as an outpt Chronic cough - can cont outpt workup. Total Time Spent: Greater than 30 minutes This includes examination of the patient, discharge planning, medication reconciliation, and communication with other providers. Discharge Instructions Please refer to the electronic Patient Visit Report (Discharge Instructions) for additional information.
== END 2018-01-18 13:56 | disposition home or self-care (01) | DRG 690 ==
LOC: C.EDB 11:15 → C.MSN 15:18 → EDBEDREQ 15:36 → ENRESERV 16:17
PROVIDERS: ADMIT Internal Medicine; ATTEND Internal Medicine
DX: N13.6 Pyonephrosis (principal); B96.20 Unspecified Escherichia coli [E. coli] as the cause of diseases classified elsewhere; R05 Cough; Z88.8 Allergy status to other drugs, medicaments and biological substances; Z82.49 Family history of ischemic heart disease and other diseases of the circulatory system